=== PATIENT | female | born 1945 | race Caucasian/White ===

== ENCOUNTER → 2018-09-07 | Outpatient (CLI) | payer MEDICARE ==
[~2018-09-07] MED LIST: ACIPHEX 20 MG T20 MG PO; ADVAIR 100-501 EACH INH; ALBUTEROL2.5 MG/31; ANTIPYRINE-BENZ10 ML OT; ASPIR-TRIN325 MG PO; AUGMENTIN 875875 MG PO; CEFDINIR300 MG PO; CIPRO500 MG PO; COLACE 100 MG100 MG PO; COLACE100 MG PO; CORTISPORIN OTI10 M2 OTIC; FISH OIL 1,001000 M2 PO; FLAGYL500 MG PO; FLEXERIL PO; FLONASE 0.05%50 MCG NASAL; FLORANEX TABLE1 EACH PO; FLOVENT HFA 1110 MCG INH; GLUCOSAMINE1000 MG PO; METAMUCIL0.52 GM PO; MIRALAX17 GM PO; MOBIC15 MG PO; NORCO 5-325 TA1 EAC1 PO; NORCO 5-325 TA1 EACH PO; OMEPRAZOLE 20 M20 M1 PO; OXYCONTIN10 M1 PO; PROBIOTIC1 EAC1 PO; ROXICODONE5 MG PO; SENOKOT-S1 TA1 PO; XARELTO10 M1 PO; XOPENEX 0.63 MG/3 M1 INH; XOPENEX HFA15 GM INH; ZOFRAN ODT4 MG DISSOLVE
== END ==
LOC: M.ULTRA 13:49
DX: M79.89 Other specified soft tissue disorders (principal); R79.89 Other specified abnormal findings of blood chemistry